=== PATIENT | male | born 1985 | race Two or more races ===

== ENCOUNTER 2020-06-28 10:46 | Day surgery (SDC) | payer OTHER ==
[~2020-06-28] VITALS: Ht 182.9 cm; Wt 75.9 kg
[~2020-06-28 10:46] MED LIST: CeFAZolin 1 GM/DEXTROSE 0 ML IV ONE; CeFAZolin 1 GM/DEXTROSE 50 ML IV ONE; RINGERS SOLUTION,LACTATED 1,000 ML IV ONE
[2020-06-28] MEDS ORDERED: 0.9% SODIUM CHLORIDE 10 ML VIAL IVP ONE (10:47)
[2020-06-28] MEDS ORDERED: PROPOFOL 1% 20 ML VIAL IVP ONE (10:47)
[2020-06-28] MEDS ORDERED: GLYCOPYRROLATE 0.2 MG/ML VIAL IM ONE (10:47)
[2020-06-28] MEDS ORDERED: LIDOCAINE/PF 2% 5 ML VIAL IM ONE (10:47)
[2020-06-28] MEDS ORDERED: DEXAMETHASONE SOD PHOS 4 MG/ML VIAL IVP ONE (10:47)
[2020-06-28] MEDS ORDERED: MIDAZOLAM HCL 2 MG/2 ML VIAL IVP ONE ×2 (10:47)
[2020-06-28] MEDS ORDERED: ROCURONIUM BROMIDE 10 MG/ML 5 ML VIAL IVP ONE (10:47)
[2020-06-28] MEDS ORDERED: FentaNYL CITRATE-PF 100 MCG/2 ML VIAL IVP ONE ×2 (10:47)
[2020-06-28] MEDS ORDERED: METOCLOPRAMIDE HCL 5 MG/ML 2 ML VIAL IVP ONE (10:47)
[2020-06-28] MEDS ORDERED: ONDANSETRON HCL 4 MG/2 ML VIAL IVP ONE (10:47)
[2020-06-28] MEDS ORDERED: RINGERS SOLUTION,LACTATED 1,000 ML IV ONE (12:00)
[2020-06-28] MEDS ORDERED: CeFAZolin 1 GM/DEXTROSE 50 ML IV ONE (12:00)
[2020-06-28] MEDS ORDERED: BUPIVACAINE/EPI/PF 0.5% 30 ML VIAL ONE (13:49)
[2020-06-28] MEDS ORDERED: HYDROmorphone 2 MG/ML SYRINGE IVP PRN (14:45)
[2020-06-28] MEDS ORDERED: MEPERIDINE-PF 25 MG/ML VIAL IVP PRN (14:45)
[2020-06-28] MEDS ORDERED: FentaNYL CITRATE-PF 100 MCG/2 ML VIAL IVP PRN (14:45)
[2020-06-28] MEDS ORDERED: HYDROmorphone 2 MG/ML SYRINGE ONE (15:23)
[2020-06-28] MEDS ORDERED: OXYGEN THERAPY IH SCH (20:00)
== END 2020-06-28 16:45 | disposition home or self-care (01) ==
LOC: SURGERY 10:46
PROVIDERS: ATTEND Orthopaedic Surgery
DX: T84.89XA Other specified complication of internal orthopedic prosthetic devices, implants and grafts, initial encounter (principal); L90.5 Scar conditions and fibrosis of skin; M25.622 Stiffness of left elbow, not elsewhere classified; Z98.890 Other specified postprocedural states; Y83.8 Other surgical procedures as the cause of abnormal reaction of the patient, or of later complication, without mention of misadventure at the time of the procedure
CPT/HCPCS: 20680; 87426; 88300; J0690; J1100; J1170; J2250; J2405; J2704; J2765; J3010; J3490 ×4; J7120